=== PATIENT | male | born 1970 | race Caucasian/White ===

== ENCOUNTER 2018-11-22 00:40 | Emergency (ER) | payer OTHER ==
[2018-11-22 00:53] VITALS: BP 154/102
[2018-11-22] MEDS ORDERED: Ketorolac 30 MG/ML SDV IVPUSH ONE (01:13)
[2018-11-22] MEDS ORDERED: Sodium Chloride 0.9% 10 ML Syringe FLUSH PRN (01:13)
[2018-11-22] MEDS ORDERED: fentaNYL 100 MCG/2 ML SDV IVPUSH ONE (01:13)
[2018-11-22] MEDS ORDERED: cefTRIAXone 2 GM in Sodium Chloride 0.9% 100 ML IV ONE (01:15)
--- NOTE | 2018-11-22 02:22 | EDM.PDOC ---
ED HPI GENERAL MEDICAL PROBLEM - General Chief Complaint: Genitourinary Problem Stated Complaint: RIGHT TESTICLE SWOLLEN Time Seen by Provider: 11/22/18 01:01 Source of Information: Reports: Patient History Limitations: Reports: No Limitations - History of Present Illness INITIAL COMMENTS - FREE TEXT/NARRATIVE: The patient presents with right testicular pain and swelling. He said this all started a couple weeks ago. He had some swelling to his right testicle. It went away after awhile and came back with more pain a few days ago. He saw Dr Ruff and he ordered an US. The US was done today and it showed epididymitis. He was put on tramadol and levaquin. He went home and the pain got much worse. He denies any fever, chills, abdominal pain, nausea or vomiting. he has no discharge. He had all the labs and urine samples done earlier. Onset: Gradual Duration: Day(s): Location: Reports: Other (right testicle) Quality: Reports: Sharp Severity: Severe Improves with: Reports: None Worsens with: Reports: None Associated Symptoms: Reports: No Other Symptoms Scrotum Pain Score (Numeric/FACES): 10 - Related Data Allergies Allergy/AdvReac Type Severity Reaction Status Date / Time hydromorphone [From Dilaudid] Allergy Rash Verified 11/22/18 00:53 Home Meds: Home Meds Levofloxacin 500 mg PO DAILY 11/22/18 [History] traMADol [Ultram] 50 mg PO Q6HR PRN 11/22/18 [History] Past Medical History - Past Health History Medical/Surgical History: Denies Medical/Surgical History ED ROS GENERAL - Review of Systems Review Of Systems: See Below Constitutional: Reports: No Symptoms HEENT: Reports: No Symptoms Respiratory: Reports: No Symptoms Cardiovascular: Reports: No Symptoms Endocrine: Reports: No Symptoms GI/Abdominal: Reports: No Symptoms : Reports: Other (right testicle pain and swelling) ED EXAM, RENAL/ - Physical Exam Exam: See Below Exam Limited By: No Limitations General Appearance: Alert, No Apparent Distress Ears: Normal External Exam Nose: Normal Inspection Head: Atraumatic, Normocephalic Neck: Normal Inspection Respiratory/Chest: No Respiratory Distress, Lungs Clear, Normal Breath Sounds Cardiovascular: Regular Rate, Rhythm, No Edema, No Murmur GI/Abdominal: Soft, Non-Tender, No Organomegaly, No Mass (Male) Exam: Testicular Tenderness (R) (with edema) Extremities: Normal Inspection Neurological: Alert, Oriented, No Motor/Sensory Deficits Course - Vital Signs Last Recorded V/S: Last Vital Signs Temp 98.4 F 11/22/18 00:50 Pulse 100 11/22/18 00:50 Resp 18 11/22/18 00:50 BP 154/102 H 11/22/18 00:50 Pulse Ox 100 11/22/18 00:50 - Orders/Labs/Meds Orders: Active Orders 24 hr Category Date Time Status Peripheral IV Care [RC] . DIRECTED Care 11/22/18 01:13 Active Sodium Chloride 0.9% [Saline Flush] Med 11/22/18 01:13 Active 10 ml FLUSH ASDIRECTED PRN Peripheral IV Insertion Adult [OM.PC] Routine Oth 11/22/18 01:13 Ordered Medication Orders Sodium Chloride (Saline Flush) 10 ml FLUSH ASDIRECTED PRN PRN Reason: Keep Vein Open Last Admin: 11/22/18 01:30 Dose: 10 ml Meds: Medications Generic Name Dose Route Start Last Admin Trade Name Freq PRN Reason Stop Dose Admin Sodium Chloride 10 ml 11/22/18 01:13 11/22/18 01:30 Saline Flush FLUSH 10 ml ASDIRECTED PRN Administration Keep Vein Open Discontinued Medications Generic Name Dose Route Start Last Admin Trade Name Freq PRN Reason Stop Dose Admin Fentanyl 100 mcg 11/22/18 01:13 11/22/18 01:28 Sublimaze IVPUSH 11/22/18 01:14 100 mcg ONETIME ONE Administration Ceftriaxone Sodium 2 gm/ 100 mls @ 200 mls/hr 11/22/18 01:15 11/22/18 01:29 Sodium Chloride IV 11/22/18 01:44 200 mls/hr ONETIME ONE Administration Ketorolac Tromethamine 30 mg 11/22/18 01:13 11/22/18 01:29 Toradol IVPUSH 11/22/18 01:14 30 mg ONETIME ONE Administration - Re-Assessments/Exams Free Text/Narrative Re-Assessment/Exam: 11/22/18 02:22 I ordered an IV saline lock, fentanyl 100mcg IV, toradol 30mg IV and rocephin 2 grams IV. 11/22/18 02:26 He is feeling much better. I will keep him on the levaquin but I will give him some percocets for the pain. Departure - Departure Time of Disposition: 02:30 Disposition: Home, Self-Care 01 Condition: Good Clinical Impression: Epididymitis - Discharge Information *PRESCRIPTION DRUG MONITORING PROGRAM REVIEWED*: No *COPY OF PRESCRIPTION DRUG MONITORING REPORT IN PATIENT FRANKIE: No Referrals: Pérez Collins MD [Primary Care Provider] - 1 Week Forms: ED Department Discharge Additional Instructions: Take the levaquin as prescribed. Try the percocets in stead of the tramadol. Please return if you are worse. - My Orders Last 24 Hours: My Active Orders 11/22/18 01:13 Peripheral IV Care [RC] . DIRECTED Sodium Chloride 0.9% [Saline Flush] 10 ml FLUSH ASDIRECTED PRN Peripheral IV Insertion Adult [OM.PC] Routine - Assessment/Plan Last 24 Hours: My Active Orders 11/22/18 01:13 Peripheral IV Care [RC] . DIRECTED Sodium Chloride 0.9% [Saline Flush] 10 ml FLUSH ASDIRECTED PRN Peripheral IV Insertion Adult [OM.PC] Routine
== END 2018-11-22 02:37 | disposition home or self-care (01) ==
LOC: JD.ED 00:40
DX: N45.1 Epididymitis (principal); Z88.5 Allergy status to narcotic agent; Z79.899 Other long term (current) drug therapy
CPT/HCPCS: 96365; 96375; 99283; J0696; J1885; J3010; J7030; 99284

== ENCOUNTER 2024-10-07 14:22 | Emergency (ER) | payer OTHER ==
[2024-10-07 15:25] LABS: HEMOGLOBIN 13.6 gm/dl (14.0-18.0); MEAN CORPUSCULAR HEMOGLOBIN 29.3 pg (28.0-32.0); MEAN CORPUSCULAR HGB CONC 33.2 g/dl (32.0-36.0); MEAN CORPUSCULAR VOLUME 88.4 fl (83.0-99.0); MEAN PLATELET VOLUME 9.7 fl (9.4-12.4); PLATELET COUNT,PLT 107 K/mm3 (150-400); RED BLOOD CELL COUNT 4.64 M/mm3 (4.52-5.90); WHITE BLOOD CELL COUNT,WBC 2.87 K/mm3 (3.9-11.3)
[2024-10-07 15:41] LABS: INR 1.13; PROTHROMBIN TIME 11.9 SECONDS (9.7-12.0)
[2024-10-07 15:46] LABS: A/G RATIO 1.2 (1-2); ALBUMIN 3.7 g/dl (3.4-5.0); ANION GAP 15.3 (5-15); BILIRUBIN TOTAL 2.2 mg/dL (0.2-1.0); BUN/CREATININE RATIO 14.3 (14-18); C-REACTIVE PROTEIN 0.21 mg/dL (<0.30); CREATININE 1.4 mg/dL (0.7-1.3); EST CRCL DRUG DOSING (CG) 66.98 mL/min; POTASSIUM,K 4.3 mEq/L (3.5-5.1); PROTEIN TOTAL,TP 6.8 g/dl (6.4-8.2)
[2024-10-07 15:51] LABS: LACTIC ACID 0.6 mmol/L (0.4-2.0)
[2024-10-07 16:30] LABS: APPEARANCE,URINE CLEAR (Clear); BILIRUBIN,URINE NEGATIVE (Negative); COLOR,URINE YELLOW (Yellow); GLUCOSE,URINE NEGATIVE (Negative); KETONES,URINE NEGATIVE (Negative); LEUKOCYTE ESTERASE,URINE NEGATIVE (Negative); NITRITE,URINE NEGATIVE (Negative); OCCULT BLOOD,URINE NEGATIVE (Negative); PROTEIN,URINE 1+ (Negative); UROBILINOGEN,URINE 0.2 (0.2-1.0)
[2024-10-07 16:38] LABS: BACTERIA,URINE FEW /hpf (FEW); EPITHELIAL CELLS,URINE 0-5 /hpf (0-5); MUCUS,URINE MODERATE /hpf (FEW); RBC,URINE 0-5 /hpf (0-5); WBC,URINE 0-5 /hpf (0-5)
[2024-10-07 16:39] LABS: HYALINE CASTS,URINE 0-5 /lpf (0-5)
[2024-10-07] MEDS: Sodium Chloride 0.9% 1,000 ML IV ONE (16:44)
[2024-10-07 17:00] LABS: BAND PERCENT MAN 0 % (0-10); BASOPHILS PERCENT MAN 0 (0.2-1.2); EOSINOPHILS PERCENT MAN 1 % (0.8-7.0); LYMPHOCYTES % ATYPICAL MANUAL 0 %; LYMPHOCYTES PERCENT MAN 32 % (20-40); MONOCYTES PERCENT MAN 2 % (2-10)
[2024-10-07 17:07] LABS: ANISOCYTOSIS 1+ SLIGHT; OVALOCYTES 1+ SLIGHT; TEARDROP CELLS OCCASIONAL
[2024-10-07 17:08] LABS: MICROCYTOSIS 1+ SLIGHT; POLYCHROMASIA 1+ SLIGHT
[2024-10-07 17:11] LABS: PLATELET COUNT ESTIMATE DECREASED
[2024-10-07 18:55] VITALS: BP 115/76; PULSE 79
== END 2024-10-07 18:10 | disposition home or self-care (01) ==
LOC: JD.ED 14:22
DX: R50.9 Fever, unspecified (principal); R21 Rash and other nonspecific skin eruption; Z79.899 Other long term (current) drug therapy; Z88.5 Allergy status to narcotic agent; Z91.048 Other nonmedicinal substance allergy status
CPT/HCPCS: 36415; 70450; 71046; 80053; 81001; 83605; 85007; 85027; 85610; 86140; 87040; 87428; 96360; 99284; J7030

== ENCOUNTER 2024-10-19 21:45 | Emergency (ER) | payer OTHER ==
[2024-10-19] MEDS ORDERED: Sodium Chloride 0.9% 10 ML Syringe FLUSH PRN (22:18)
[2024-10-19 22:46] LABS: BASOPHILS PERCENT AUTO 0.4 % (0.0-1.0); EOSINOPHILS PERCENT AUTO 0.4 % (0.0-6.0); HEMATOCRIT 35.9 % (42.0-52.0); LYMPHOCYTES ABSOLUTE AUTO 0.4 K/mm3 (1.0-4.8); LYMPHOCYTES PERCENT AUTO 16.9 % (24.0-44.0); MEAN CORPUSCULAR HEMOGLOBIN 30.3 pg (28.0-32.0); MEAN CORPUSCULAR HGB CONC 33.4 g/dl (32.0-36.0); MEAN CORPUSCULAR VOLUME 90.7 fl (83.0-99.0); MEAN PLATELET VOLUME 9.2 fl (9.4-12.4); MONOCYTES ABSOLUTE AUTO 0.1 K/mm3 (0.0-0.8); MONOCYTES PERCENT AUTO 3.6 % (0.0-8.0); NEUTROPHILS PERCENT AUTO 78.7 % (41.0-71.0); PLATELET COUNT,PLT 129 K/mm3 (150-400); RED BLOOD CELL COUNT 3.96 M/mm3 (4.52-5.90)
[2024-10-19 22:55] LABS: WHITE BLOOD CELL COUNT,WBC 2.49 K/mm3 (3.9-11.3)
[2024-10-19 23:06] LABS: ANION GAP 12.4 (5-15); BUN/CREATININE RATIO 17.7 (14-18); CALCIUM 8.5 mg/dL (8.5-10.1); CREATININE 1.3 mg/dL (0.7-1.3); EST CRCL DRUG DOSING (CG) 72.13 mL/min; POTASSIUM,K 4.4 mEq/L (3.5-5.1)
[2024-10-20 00:09] VITALS: BP 128/85; PULSE 80
== END 2024-10-20 00:10 | disposition home or self-care (01) ==
LOC: JD.ED 21:45
DX: D84.9 Immunodeficiency, unspecified (principal); Z79.899 Other long term (current) drug therapy; Z91.048 Other nonmedicinal substance allergy status; Z88.5 Allergy status to narcotic agent
CPT/HCPCS: 36415; 80048; 85025; 87040; 87428-QW; 99283; 99284